=== PATIENT | male | born 1960 | race Caucasian/White ===

== ENCOUNTER → 2017-12-23 14:00 | Outpatient (CLI) | payer BC, SELFPAY ==
--- NOTE | 2017-12-23 14:05 | RAD_ITS ---
STUDY: X-RAY - ABDOMEN/PELVIS REASON FOR EXAM: Male, 57 years old. Left nephrolithiasis TECHNIQUE: Two AP supine views of the abdomen and pelvis. COMPARISON: Prior study of 09/04/2017 FINDINGS: The lung bases were not included in the [id number] of the study. There has been interval removal of a left ureteral stent noted previously. There is an unremarkable bowel gas pattern. There is no demonstrated free abdominal air. There are multiple tiny calculi of the mid and inferior pole of the left kidney, stable in the interval. No definite right renal calculi are identified. Normal soft tissue structures. Normal visualized osseous structures. RAD/Abdomen Single View IMPRESSION: Interval removal of left-sided ureteral stent. Left nephrolithiasis, stable in the interval. Electronically Signed: Antonio Clement MD at 17:02 EST , Service support ,
== END ==
PROVIDERS: Family Provider Internal Medicine; PCP Internal Medicine; Visit Provider Urology
DX: N20.0 Calculus of kidney (principal)
CPT/HCPCS: 74018

== ENCOUNTER → 2018-06-30 13:32 | Outpatient (CLI) | payer BC, SELFPAY | PROVIDERS: Family Provider Internal Medicine; PCP Internal Medicine; Visit Provider Urology | DX: N20.0 Calculus of kidney (principal) | CPT/HCPCS: 74018 ==

== ENCOUNTER → 2019-02-01 | Outpatient (CLI) | payer BC, SELFPAY ==
--- NOTE | 2019-02-01 15:14 | RAD_ITS ---
STUDY: X-RAY - LUMBAR SPINE REASON FOR EXAM: Male, 58 years old. Back pain. TECHNIQUE: 5 view(s) of the lumbar spine were obtained. COMPARISON: 08/29/2014. FINDINGS: Normal lumbar lordosis. There is no substantial scoliosis. There is spondylolysis at the L4-5 level with grade 1 spondylolisthesis. There is minimal retrolisthesis at the L5-S1 level, on a degenerative basis. Normal vertebral bodies. There is mild spondylosis at multiple levels.. There is disc space narrowing at the L4-5 and L5-S1 levels. There is atherosclerotic calcification of the abdominal aorta without a demonstrated aneurysm. RAD/L/S Spine Min 4 Views IMPRESSION: Degenerative disc disease L4-5 and L5-S1. Bilateral spondylolysis L4-5 with grade 1 spondylolisthesis. Grade 1 retrolisthesis L5-S1, on a degenerative basis. Similar findings were present on previous study. Electronically Signed: Ryan Nguyễn MD at 6:28 EDT , Service support ,
== END | disposition home or self-care (01) ==
LOC: HPRAD 15:08
PROVIDERS: Family Provider Internal Medicine; PCP Internal Medicine; Referring Provider Nurse Practitioner; Visit Provider Nurse Practitioner
DX: M54.30 Sciatica, unspecified side (principal)
CPT/HCPCS: 72110

== ENCOUNTER 2021-02-27 09:36 | Emergency (ER) | payer BC, SELFPAY ==
[2021-02-27 09:36] VITALS: BP 131/86; PULSE 87; RESP 16; TEMP 36.2; O2SAT 97; BMI 25.5
--- NOTE | 2021-02-27 09:45 | CT_ITS ---
STUDY: CT ABDOMEN AND PELVIS WITHOUT CONTRAST REASON FOR EXAM: Male, 60 years old. Kidney Stone. Left flank pain. RADIATION DOSAGE (If Supplied By Facility): CTDIvol = ( 6.31 ) mGy, DLP = ( 318.46 ) mGycm TECHNIQUE: Transaxial images were obtained from the dome of the diaphragm to the symphysis pubis without oral contrast, and without intravenous contrast. Sagittal and coronal images were reconstructed. Individualized dose optimization techniques were used for this CT. COMPARISON: Comparison is made with prior study dated 11/14/2014. FINDINGS: The visualized lung bases are unremarkable. The visualized portions of the heart are within normal limits. Normal liver. Small gallstones are seen along the dependent portion of the gallbladder lumen. Normal spleen. Normal pancreas. Normal bilateral adrenal glands. Normal right kidney. There is engorgement of the left kidney. Left perinephric stranding. Mild degree of left hydronephrosis due to a 1.2 cm calculus at the ureteropelvic junction. There are multiple nonobstructive left intrarenal calculi. Normal visualized stomach. Normal small intestine. Normal colon. The appendix is visualized and appears normal. There is diffuse atherosclerotic calcification of the abdominal aorta, without a demonstrated aneurysm. Normal inferior vena cava. Normal retroperitoneum. Normal urinary bladder. Normal abdominal wall. There are diffuse degenerative changes of the visualized lumbar spine. Stable grade 1 anterior listhesis of L4 on L5 with spondylolysis of the pars interarticularis of the L5 vertebrae. CT/Abdomen/Pelvis without Cont IMPRESSION: 1.2 cm calculus at the left ureteropelvic junction causing left hydronephrosis and left perinephric stranding. Multiple left nonobstructive intrarenal calculi. Electronically Signed: Terrance Soto MD at 11:19 EDT , Service support ,
--- NOTE | 2021-02-27 09:47 | ED.VIS.GI ---
HPI HPI - GI History of Present Illness Chief Complaint: Flank Pain Informant: patient Abdominal Pain/Flank Pain Onset: Yesterday Context: Gradual Onset Timing: Continuous Quality: Sharp Location: Left Flank Nausea/Vomiting/Emesis GI Symptom: Positive for Nausea; Negative for Vomiting Diarrhea/Melena/Hematochezia GI Symptom: Negative for Diarrhea, Melena and Hematochezia Associated Symptoms Associated Symptoms: Negative for Dysuria and Frequency Narrative Narrative: Patient presents with left flank pain that began last night. Patient states it is gradually gotten worse. Patient states this feels similar to prior kidney stones. Patient states his last kidney stone was approximately 4 years ago. Patient admits to some nausea but denies any vomiting. Patient denies any dysuria or hematuria. Patient denies any fevers or chills. Patient states the pain is localized to the left flank. PFSH PFS Medical History (Updated 02/27/21 @ 11:[address] Jair Kendrick DO) Cancer of tonsil Kidney stones Home Medications potassium citrate [Urocit-K] 10 meq PO TID 01/14/17 [History Last Taken Unknown] oxycodone-acetaminophen 1 - 2 tab PO Q4H PRN PRN #30 tab 01/15/17 [Rx Last Taken Unknown] oxycodone-acetaminophen 1 tab PO Q6H PRN PRN 5 Days #20 tablet 02/27/21 [Rx Last Taken Unknown] Allergy/AdvReac Type Severity Reaction Status Date / Time No Known Allergies Allergy Verified 01/14/17 13:42 Surgical History History of tonsillectomy Social History Smoking Status: Current every day smoker ROS ROS ED Constitutional Constitutional ED: Denies chills or fever(s) ENT ENT ED: Denies rhinorrhea or sore throat Cardiovascular Cardiovascular: Denies chest pain or palpitations Respiratory/Chest Respiratory/Chest: Denies cough or dyspnea Gastrointestinal Gastrointestinal: Reports nausea; Denies vomiting Genitourinary Genitourinary ED: Denies dysuria or hematuria Musculoskeletal Musculoskeletal: Reports back pain; Denies neck pain Integumentary Denies abscess or rash Neurologic Neurologic: Denies headache(s) or weakness Allergic/Immunologic Allergic/Immunologic ED: Denies mouth swelling or urticaria EXAM Physical Exam Const Vital Signs: 02/27/21 09:36 02/27/21 12:12 Temperature 97.2 F L Temperature Source Temporal Pulse Rate 87 63 Respiratory Rate 16 14 Blood Pressure 131/86 H Blood Pressure Mean 101 Pulse Ox 97 99 Oxygen Delivery Method Room Air Positive well nourished and well developed General Appearance ED: well developed Neck supple and no JVD Resp normal respiratory effort and clear to auscultation bilaterally Cardio regular rate and regular rhythm GI non-distended Auscultation: normoactive bowel sounds Palpation: soft and tender LUQ; Negative for rebound tenderness present Back/Spine General Back: CVA tenderness left Extremity full ROM General Extremety ED: Negative for edema or tenderness General Extremity: Negative for edema Neuro CN's II-XII intact bilaterally and no sensory deficits noted Sensorium / Orientation: alert, oriented to person, oriented to place and oriented to time Motor Exam: strength 5/5 throughout Psych mental status grossly normal MDM MDM MDM Narrative Medical decision making narrative: CBC shows a mild leukocytosis of 13.4. Basic metabolic profile was within normal limits. Urinalysis does not show any evidence of urinary tract infection. CT scan of the abdomen pelvis was obtained. There is a 1.2 cm calculus at the left UPJ with hydronephrosis and perinephric stranding. This was interpreted by the radiologist and reviewed by myself. Patient was given IV fluids and Toradol. Patient was given Zofran. Case was discussed with Dr. Schneider. He will follow up with the patient as an outpatient. Patient was given a prescription for Percocet. Patient was instructed to return if worse in any way. Patient understood and was agreeable with the plan. All questions were answered. Lab Data Attestation: I reviewed the patient's lab results. Labs: Laboratory Results - last 24 hr 02/27/21 02/27/21 02/27/21 09:50 09:50 10:24 WBC 13.4 H RBC 5.53 Hgb 16.8 H Hct 48.9 MCV 88.4 MCH 30.4 MCHC 34.4 RDW Std Deviation 39.7 RDW Coeff of Jose Enrique 12.1 Plt Count 260 MPV 9.0 Immature Gran % (Auto) 0.500 Neut % (Auto) 84.6 H Lymph % (Auto) 9.3 L Armstrong % (Auto) 4.6 Eos % (Auto) 0.7 Baso % (Auto) 0.3 Absolute Neuts (auto) 11.3 H Absolute Lymphs (auto) 1.24 Nucleated RBC % 0 Sodium 136 Potassium 3.6 Chloride 107 Carbon Dioxide 25.0 Anion Gap 4 L BUN 18 Creatinine 1.29 Estim Creat Clear Calc 58.36 Est GFR (MDRD) Af Amer 73 Est GFR (MDRD) Non-Af 61 BUN/Creatinine Ratio 14.0 Glucose 140 H Calcium 9.4 Urine Color Straw Urine Clarity Clear Urine pH 7.0 Ur Specific [place] 1.010 Urine Protein Negative Urine Glucose (UA) Normal Urine Ketones Negative Urine Occult Blood 25 H Urine Nitrite Negative Urine Bilirubin Negative Urine Urobilinogen Normal Ur Leukocyte Esterase Negative Urine RBC 0-5 SEEN Urine WBC 0 SEEN Ur Squamous Epith Cells 0 SEEN Urine Bacteria RARE Urine Mucus 0 SEEN Radiography Diagnostic Testing: Radiology Impression Abdomen/Pelvis CT 02/27/21 09:45 IMPRESSION: 1.2 cm calculus at the left ureteropelvic junction causing left hydronephrosis and left perinephric stranding. Multiple left nonobstructive intrarenal calculi. Electronically Signed: Terrance Soto MD at 11:19 EDT , Service support , Discharge Plan Triage Chief Complaint: Flank Pain ED Provider: Jair Kendrick Dx/Rx/DC Orders Clinical Impression: Calculus of proximal left ureter Instructions: ED Kidney Stone w/ Colic Prescriptions: New oxycodone-acetaminophen [oxycodone-acetaminophen] 1 TABLET tablet 1 tab PO Q6H PRN PRN (Reason: pain) 5 Days Qty: 20 RF: 0 No Action potassium citrate [Urocit-K 10] 10 MEQ tablet extended release 10 meq PO TID RF: 0 oxycodone-acetaminophen 1 TABLET tablet 1 - 2 tab PO Q4H PRN PRN (Reason: Pain) Qty: 30 RF: 0 Primary Care Provider: Jenn Carmona Referrals: Italo Schneider MD [STAFF PHYSICIAN] - As soon as possible Jenn Carmona DO [Primary Care Provider] - Disposition Disposition: Home, self care Discharge Date/Time: 02/27/21 12:13
[2021-02-27 09:55] LABS: Absolute Lymphocyte Count 1.24 X10^3/uL (0.83-4.51); Absolute Neutrophil Count 11.3 X10^3/uL (2.0-7.7); Basophil# 0.04 X10^3/uL; Basophil% 0.3 % (0-1); Eosinophils% 0.7 % (0-5); Hematocrit 48.9 % (40-54); Hemoglobin 16.8 g/dL (13.0-16.5); Lymphocyte # 1.24 X10^3/ul (0.83-4.51); Lymphocyte % 9.3 % (19-41); Mean Corp Hgb Conc 34.4 g/dL (32-36); Mean Corpuscular Hgb 30.4 pg (27.0-32.0); Mean Corpuscular Volume 88.4 fL (80-94); Monocyte# 0.62 X10^3/uL; Monocyte% 4.6 % (0-10); NRBC Flagged by Analyzer 0 % (0-5); Neutrophil # 11.32 X10^3/uL (2.7-7.7); Neutrophil % 84.6 % (47-70); Platelet Count 260 K/mm3 (150-450); RBC Distribution Width CV 12.1 % (11.6-14.6); RBC Distribution Width SD 39.7 fl (35.1-43.9); Red Blood Count 5.53 M/mm3 (4.6-6.2); White Blood Count 13.4 K/mm3 (4.4-11.0)
[2021-02-27 10:07] LABS: Anion Gap 4 (5-15); BUN 18 mg/dL (7-18); Calcium,Total 9.4 mg/dL (8.5-10.1); Chloride 107 mmol/L (98-107); Creatinine, Serum 1.29 mg/dL (0.70-1.30); EST Glomerular Filtration Rate 61 mL/min (>60); Est Glom Filt Rate - Afr Amer 73 mL/min (>60); Estimated Creatinine Clearance 58.36 ml/min; Glucose 140 mg/dL (74-106); Potassium 3.6 mmol/L (3.5-5.1); Sodium Level 136 mmol/L (136-145)
[2021-02-27] MEDS: Ondansetron 4 MG/2 ML Vial IV (10:10)
[2021-02-27] MEDS: Ketorolac 30 MG/ML Syringe IV (10:10)
[2021-02-27] MEDS: 0.9% Normal Saline 1,000 ML 250 ML IV (10:10)
[2021-02-27 10:28] LABS: Mucous, Urine 0 SEEN /hpf (<or=2+); Squamous Epithelial Cells - UA 0 SEEN /hpf (0-5); White Blood Cells 0 SEEN /hpf (0-5)
[2021-02-27 10:42] LABS: Color, Urine Straw (Yellow); Glucose, Dipstick Normal (Normal); Ketone-Dipstick Negative (Negative); Leukocyte Esterase-Dipstick Negative /ul (Negative); Nitrite-Dipstick Negative (Negative); Occult Blood-Urine 25 /ul (Negative); Protein-Dipstick Negative (Negative); Urine Bilirubin Dipstick Negative (Negative); Urine Clarity Clear (Clear); Urine Urobilinogen Normal (Normal)
[2021-02-27 10:54] LABS: Bacteria RARE /hpf (None Seen); Red Blood Cells-Urine 0-5 SEEN /hpf (0-5)
[2021-02-27 12:12] VITALS: PULSE 63; RESP 14; O2SAT 99
== END 2021-02-27 12:13 | disposition home or self-care (01) ==
PROVIDERS: Emergency Provider Emergency Medicine; PCP Internal Medicine
DX: N20.1 Calculus of ureter (principal); F17.200 Nicotine dependence, unspecified, uncomplicated; Z87.442 Personal history of urinary calculi
CPT/HCPCS: 74176; 80048; 81001; 85025; 96361; 96374; 96375; 99283; A4216; J2405

== ENCOUNTER 2021-03-07 11:20 | Day surgery (SDC) | payer BC, SELFPAY ==
[2021-03-07 11:48] VITALS: BP 148/89; PULSE 64; RESP 16; TEMP 37.1; O2SAT 100; BMI 24.7
[2021-03-07] MEDS: Lactated Ringers 1,000 ML 100 ML IV (12:00)
[2021-03-07] MEDS: Lactated Ringers 1,000 ML 75 ML IV (14:30)
--- NOTE | 2021-03-07 14:32 | PCM.HP.STD ---
HPI - General HPI Narrative JANUARY BA, is a 60 M who presents with a large left renal calculus [facility] [place] Medical History (Updated 03/07/21 @ 14:[address] Italo Schneider MD) Cancer Cancer of tonsil Former smoker Full dentures GERD (gastroesophageal reflux disease) Hearing loss, left Hearing loss, right Kidney stones Home Medications potassium citrate [Urocit-K 10] 10 meq PO TID PRN PRN 01/14/17 [History Last Taken Unknown] oxycodone-acetaminophen 1 - 2 tab PO Q4H PRN PRN #30 tab 01/15/17 [Rx Last Taken 03/06/21] esomeprazole magnesium [Nexium 24HR] 20 mg PO DAILY 03/02/21 [History Last Taken 03/07/21] ciprofloxacin HCl [Cipro] 500 mg PO BID #6 tab 03/07/21 [Rx Last Taken Unknown] oxycodone-acetaminophen [Percocet] 1 tab PO Q4H PRN 7 Days #14 tab 03/07/21 [Rx Last Taken Unknown] Allergy/AdvReac Type Severity Reaction Status Date / Time No Known Allergies Allergy Verified 03/02/21 09:25 Surgical History (Updated 03/02/21 @ 09:33 by Kalpana Camargo) History of amputation of finger of left hand History of esophagogastroduodenoscopy (EGD) History of tonsillectomy Social History Smoking Status: Former smoker Vital Signs Vital Signs Vital Signs: 03/07/21 11:48 Temperature 98.7 F Temperature Source Temporal Pulse Rate 64 Respiratory Rate 16 Respiratory Pattern Normal Blood Pressure 148/89 H Blood Pressure Mean 108 Blood Pressure Source Monitor Blood Pressure Position Semi-Fowlers Blood Pressure Location Left Arm Pulse Ox 100 Oxygen Delivery Method Room Air Physical Exam Const alert and oriented x3 General Appearance: cooperative HEENT normocephalic, head/scalp atraumatic, EAC's normal and TM's normal bilaterally Eyes PERRL and EOMs intact bilaterally Pupil: sluggish Neck no lymphadenopathy, supple and no JVD General: trachea midline Lymph Lymphatic: no lymphadenopathy noted, lymphedema and lymphadenopathy Resp normal respiratory effort, normal air movement and clear to auscultation bilaterally Cardio regular rate, regular rhythm and peripheral pulses 2+ throughout GI soft to palpation, non-tender and non-distended Extremity normal capillary refill and no clubbing, cyanosis or edema General Extremity: no tenderness to palpation of joints or extremities Skin no rashes or lesions noted General Skin Exam: turgor normal Lesions: no lesions Rashes: no rashes Neuro CN's II-XII intact bilaterally Speech: speech normal Motor Exam: strength 5/5 throughout; Negative for general weakness Psych thought process normal, cooperative and affect normal Appearance: appropriate Lab / Micro Data Micro: Microbiology 03/06/21 15:53 SARS-CoV-2 Antigen (Rapid) - Final Interface Orders Assessment & Plan Assessment/Plan (1) Left renal stone: PLAN: Plan to proceed with ureteroscopy laser lithotripsy of stone in the left kidney. And stent placement
--- NOTE | 2021-03-07 14:33 | PCM.DC ---
Discharge Instructions Diet Discharge Diet: No restrictions Activity Discharge Activity: May not drive while taking narcotic pain medications. (for 3 days.) May shower in (days): 1 Dressing / Incision Call your doctor if your incision/area has: Continuous Slow Oozing, Increased Pain/ Swelling, Increased Redness and Foul Smelling Discharge Call your doctor if you observe: Fever of 101 or Higher, Numbness or Tingling, Shortness of breath, Dizziness, Calf discomfort and Uncontrolled pain Cleanse incision/area with: Keep Dressing Clean & Dry Follow Up Care Please Follow Up With: Italo Schneider MD When: Call [phone] for an appointment Test Results: Test results from this visit will be discussed in further detail at your follow-up appointment, if applicable. Discharge Plan Admission Primary Reason for Your Visit: laser of stones Attending Provider: Italo Schneider Primary Care Provider: Jenn Carmona Discharge Orders/Prescriptions Prescriptions: New ciprofloxacin HCl [Cipro] 500 mg tablet 500 mg PO BID Qty: 6 RF: 0 oxycodone-acetaminophen [Percocet] 5-325 mg tablet 1 tab PO Q4H PRN (Reason: pain) 7 Days Qty: 14 RF: 0 Continued potassium citrate [Urocit-K 10] 10 MEQ tablet extended release 10 meq PO TID PRN PRN (Reason: kidney stones) RF: 0 oxycodone-acetaminophen 1 TABLET tablet 1 - 2 tab PO Q4H PRN PRN (Reason: Pain) Qty: 30 RF: 0 esomeprazole magnesium [Nexium 24HR] 20 mg Capsule,Delayed Release(Dr/Ec) 20 mg PO DAILY RF: 0 Referrals / Follow Up: Itaol Schneider MD [STAFF PHYSICIAN] - Jenn Carmona DO [Primary Care Provider] - Disposition Discharge Orders: Discharge Patient (Routine); Ordered 03/07/21 Ordered By: Dr. Italo Schneider
[2021-03-07] MEDS: Cefazolin 2 GM in 0.9% Normal Saline 100 ML IV (14:37)
--- NOTE | 2021-03-07 15:40 | OP.PCM_ITS ---
Problems Associated Problem List Diagnoses (1) Left renal stone: Report of Operation Date of Procedure: 03/07/21 Pre-Operative Diagnosis: Large left renal calculi Post-Operative Diagnosis: Same Surgery/Procedure Performed:: Left ureteroscopy laser of stones, left retrograde pyelogram and left stent placement Description of Surgical Findings:: This is a patient who presents to the [facility] for treatment for an obstructing distal ureter calculi. I discussed with the patient how the surgery would be performed and we reviewed the risks and benefits of the surgery. The risk and benefits include the risk of failure to remove the stone completely and that the patient may need multiple procedures. We discussed the risk of an infection, the risk of bleeding. We discussed the very rare risk of serious complicated injury to the ureter. The patient understands that if the stone is not able to be removed safely that we may abort the procedure and place a stent. After full discussion and all questions address with the patient the consent form was signed the side was marked appropriately and the patient was taken back to the operating room for the procedure. The patient was taken back to the operating room. After induction of anesthesia by the anesthesiology team the patient was placed in dorsolithotomy position. The genitals were prepped and draped in usual sterile fashion. I went into the bladder with a 21 Indonesian rigid cystourethroscope through the urethra. Upon entering the bladder I inspected the trigone the left and right ureteral orifice and the bladder itself. I then cannulated the left ureteral orifice and advanced a 0.038 Glidewire up into the kidney. Then over the Glidewire I advanced a 5 Fr Ureteral catheter and performed a retrograde pyelogram with about 10cc of contrast, to delineate the anatomy and identify the stone location. Then a ureteral balloon dilator was advanced over the wire and the distal ureter was balloon dilated with a 12 Fr x 5cm balloon dilator. After 3 minutes of dilating the ureter the balloon was backloaded off the 0.038 glidewire then the safety wire was left in place. I then placed a second 0.038 Guidewire as a working wire and over the working 0.038 guidewire I went in with a Flexible 7.9fr ureteroscope. I was able to go inside with the 7.9Fr flexible utereroscope and I pulled out the working guidewire and then through the 7.9 fr flexible ureteroscope I ascended up the ureter with direct visualization until the stone was located, then I engaged the stone with laser lithotripsy using a 400 lisa laser fiber with energy setting of 10 Hertz and 1.5 J until the stone was lasered into tiny little pieces that should pass on their own. After successful laser lithotripsy of the stone and stone fragements, a retrograde pyelogram was performed with 10cc of contrast and no extravasation of contrast or perforation was identified in the ureter. I then backed out of the ureter left the wire in place and then over the 0.038 guidewire I placed a double coiled pigtail ureteral stent. The ureteral stent was advanced over the 0.038 guidewire under direct fluoroscopic guidance and direct cystoscopic visual g uidance, once the stent was in good position I pulled the wire and the stent coiled in the kidney and bladder in good position. I then drained the patient's bladder and the cystoscope was removed and the patient was taken back to the recovery room in good position. The patient was given discharge instructions to call the office for instructions on when to come to the office to have the stent removed. Type of Anesthesia: General Drains: stent left side with string Admit VTE Documentation VTE Present on Admission: No VTE Mechan Device Prophylaxis: SCD's
[2021-03-07 15:49] VITALS: BP 148/89; BP 165/89; PULSE 64; RESP 12; TEMP 36.5; O2SAT 99
[2021-03-07] MEDS: Ketorolac 15 MG/ML Vial IV (15:59)
[2021-03-07 16:00] VITALS: BP 146/93; BP 148/89; PULSE 63; RESP 18; O2SAT 98
[2021-03-07 16:10] VITALS: BP 148/89; BP 152/96; PULSE 75; RESP 18; TEMP 36.7; O2SAT 99
[2021-03-07 17:25] VITALS: BP 145/78; BP 148/89; PULSE 63; RESP 16; TEMP 36.4; O2SAT 100
== END 2021-03-07 17:44 ==
LOC: SDC 11:25 → AC 11:25
PROVIDERS: PCP Internal Medicine; Referring Provider Urology; Visit Provider Urology
PROC: 0TJ98ZZ Inspection of Ureter, Via Natural or Artificial Opening Endoscopic (ICD-10-PCS; CPT 52352; principal; 2021-03-07 14:50)
DX: N20.0 Calculus of kidney (principal); K21.9 Gastro-esophageal reflux disease without esophagitis; H91.93 Unspecified hearing loss, bilateral; Z87.891 Personal history of nicotine dependence; Z85.89 Personal history of malignant neoplasm of other organs and systems; Z79.899 Other long term (current) drug therapy
CPT/HCPCS: 00918; 52356; 76000; 87426; C9803; J7120; C1769; C2617; J2405

== ENCOUNTER → 2021-03-15 15:23 | Outpatient (CLI) | payer BC, SELFPAY ==
[2021-03-07 11:48] VITALS: BMI 24.7
--- NOTE | 2021-03-15 15:28 | RAD_ITS ---
STUDY: X-RAY - ABDOMEN/PELVIS REASON FOR EXAM: Male, 60 years old. Renal calculus. TECHNIQUE: Two AP supine views of the abdomen and pelvis. COMPARISON: CT of the abdomen and pelvis, 02/27/2021 FINDINGS: Normal visualized lung bases. There is an unremarkable bowel gas pattern. There is no demonstrated free abdominal air. The visualized liver, spleen and kidneys are grossly normal in size and morphology. There is a right ureteral stent. There are calcifications in the lower pole calyces consistent with renal calculi seen on CT. The larger calculus which was seen at the UP junction is not appreciated. Normal soft tissue structures. Normal visualized osseous structures. RAD/Abdomen Single View IMPRESSION: 1. Interval placement of left ureteral stent. 2. Small calcifications in lower pole calyx of the left kidney. Electronically Signed: Rene Caba DO at 19:52 EDT Tel [phone], Service support ,
== END ==
PROVIDERS: PCP Internal Medicine; Referring Provider Nurse Practitioner Adult Health; Visit Provider Nurse Practitioner Adult Health
DX: N20.0 Calculus of kidney (principal)
CPT/HCPCS: 74018

== ENCOUNTER → 2021-05-03 13:42 | Outpatient (CLI) | payer BC, SELFPAY ==
--- NOTE | 2021-05-03 13:44 | RAD_ITS ---
STUDY: X-RAY - ABDOMEN/PELVIS REASON FOR EXAM: Male, 60 years old. Flank pain TECHNIQUE: Two AP supine views of the abdomen and pelvis. COMPARISON: 03/15/2021 FINDINGS: Normal visualized lung bases. Previously noted left-sided JJ stent has been removed. There is an unremarkable bowel gas pattern. There is no demonstrated free abdominal air. The visualized liver, spleen and kidneys are grossly normal in size and morphology. Previous noted calcifications overlying the lower pole of the left kidney no longer identified. They could be obscured by overlying bowel gas and stool Normal soft tissue structures. Normal visualized osseous structures. RAD/Abdomen Single View IMPRESSION: No acute findings Electronically Signed: Jung Diana MD at 14:00 EDT , Service support ,
== END ==
PROVIDERS: PCP Internal Medicine; Referring Provider Nurse Practitioner Adult Health; Visit Provider Nurse Practitioner Adult Health
DX: N20.0 Calculus of kidney (principal)
CPT/HCPCS: 74018

== ENCOUNTER → 2021-08-09 10:13 | Outpatient (CLI) | payer BC, SELFPAY ==
--- NOTE | 2021-08-09 10:16 | RAD_ITS ---
STUDY: X-RAY - ABDOMEN/PELVIS REASON FOR EXAM: Male, 61 years old. CALCULUS OF KIDNEY TECHNIQUE: Single AP view of the abdomen / pelvis. COMPARISON: Comparison is made with prior study of 05/03/2021. FINDINGS: Normal visualized lung bases. There is an unremarkable bowel gas pattern. There is a 2 mm calculus in the lower pole calyx of the left kidney. Adjacent to this, there is a punctate calculus in the lower pole. Normal soft tissue structures. Normal visualized osseous structures. RAD/Abdomen Single View IMPRESSION: There are 2 tiny calculi in the lower pole calyx of the left kidney. Electronically Signed: Terrance Soto MD at 12:37 EDT , Service support ,
== END ==
PROVIDERS: PCP Internal Medicine; Referring Provider Urology; Visit Provider Urology
DX: N20.0 Calculus of kidney (principal)
CPT/HCPCS: 74018

== ENCOUNTER → 2021-08-23 09:38 | Outpatient (CLI) | payer BC, SELFPAY ==
--- NOTE | 2021-08-23 09:41 | RAD_ITS ---
STUDY: X-RAY - ABDOMEN/PELVIS REASON FOR EXAM: Male, 61 years old. Left renal calculus. Abdominal pain. TECHNIQUE: Single AP view of the abdomen / pelvis. COMPARISON: Comparison is made with prior study 08/09/2021. FINDINGS: Normal visualized lung bases. There is a moderate amount of colonic fecal material. 3 calculi are seen in the lower pole calyx of the left kidney. The largest measures 3.6 mm. Normal soft tissue structures. Normal visualized osseous structures. RAD/Abdomen Single View IMPRESSION: 3 small calculi are seen in the lower pole calyx of the left kidney. The larger calcification measures 3.6 mm. Electronically Signed: Terrance Soto MD at 13:23 EDT , Service support ,
== END ==
PROVIDERS: PCP Internal Medicine; Referring Provider Urology; Visit Provider Urology
DX: N20.0 Calculus of kidney (principal)
CPT/HCPCS: 74018

== ENCOUNTER → 2021-08-27 16:46 | Outpatient (CLI) | payer BC, SELFPAY ==
--- NOTE | 2021-08-27 16:58 | CT_ITS ---
STUDY: CT ABDOMEN AND PELVIS WITHOUT CONTRAST REASON FOR EXAM: Male, 61 years old. Kidney stone. History of lithotripsy 2 months ago. RADIATION DOSAGE (If Supplied By Facility): CTDIvol = ( 6.39 ) mGy, DLP = ( 312.94 ) mGycm TECHNIQUE: Transaxial images were obtained from the dome of the diaphragm to the symphysis pubis without oral contrast, and without intravenous contrast. Sagittal and coronal images were reconstructed. Individualized dose optimization techniques were used for this CT. COMPARISON: 12/28/2020. FINDINGS: The visualized lung bases are unremarkable. The visualized portions of the heart are within normal limits. Normal liver. Normal gallbladder and extrahepatic biliary system. Normal spleen. Normal pancreas. There is prominence of both adrenal glands. The left is more masslike in appearance. Normal right kidney. Normal visualized right ureter. There are multiple calcifications in the mid to lower left kidney consistent with renal calculi. The largest, in the lower pole, measures 7 mm in greatest dimension. There is no hydronephrosis. Normal visualized left ureter. Normal visualized stomach. Normal small intestine. Normal colon. The appendix is visualized and appears normal. There is diffuse atherosclerotic calcification of the abdominal aorta, without a demonstrated aneurysm. Normal inferior vena cava. Normal retroperitoneum. Poorly distended urinary bladder without gross abnormality. There is no filling defects. Normal size prostate. There are phleboliths in the pelvis without lymphadenopathy. No free air or free fluid is seen within the peritoneal cavity. Umbilical hernia of omental fat. The abdominal wall is otherwise unremarkable. There are diffuse degenerative changes of the visualized lumbar spine. There is anterolisthesis of L4 on L5 with bilateral pars defects. CT/Abdomen/Pelvis without Cont IMPRESSION: 1. Multiple nonobstructing left renal calculi. The hydronephrosis and large UPJ calculus seen on the previous study are no longer present. 2. Marked enlargement of the left adrenal gland not seen on the previous study. No change in the appearance of adrenal glands is markedly altered. Etiology is uncertain. Question intracranial hemorrhage. 3. Otherwise normal CT of the abdomen and pelvis. There is no other interval change. Electronically Signed: Rene Caba DO at 22:50 EDT Tel [phone], Service support ,
== END ==
PROVIDERS: PCP Internal Medicine; Referring Provider Urology; Visit Provider Urology
DX: N20.0 Calculus of kidney (principal)
CPT/HCPCS: 74176

== ENCOUNTER → 2021-08-31 08:14 | Outpatient (CLI) | payer BC, SELFPAY ==
--- NOTE | 2021-08-31 08:45 | CT_ITS ---
STUDY: CT ABDOMEN WITH CONTRAST REASON FOR EXAM: Male, 61 years old. CALCULUS OF KIDNEY. Prominence of the left adrenal gland. RADIATION DOSAGE (If Supplied By Facility): CTDIvol = ( 21.37 ) mGy, DLP = ( 1726.74 ) mGycm TECHNIQUE: Transaxial images were obtained post I.V. administration of IV 100mL Isovue-370, and oral contrast. Sagittal and coronal images were reconstructed. Individualized dose optimization techniques were used for this CT. COMPARISON: Comparison is made with prior examination dated 08/27/2021. FINDINGS: The visualized lung bases are unremarkable. The visualized portions of the heart are within normal limits. Normal liver. Normal gallbladder and extrahepatic biliary system. Normal spleen. There are 2 adjacent cystic changes in the body of the pancreas. These measure 8 mm and 7 mm respectively. Correlation with ultrasound is recommended. Bilateral adrenal enlargement more prominent on the right side where there is evidence of a hypodense mass lesion measuring 3.3 cm x 2.4 cm. This is not a typical adenoma. Normal right kidney. Stable multiple nonobstructive left intrarenal calculi the largest is in the lower pole and measures 7 mm. Normal visualized stomach. Normal small intestine. Normal colon. The appendix is visualized and appears normal. There is scattered atherosclerotic calcification of the abdominal aorta, without a demonstrated aneurysm. Normal inferior vena cava. Normal retroperitoneum. Normal abdominal wall. There are degenerative changes of the visualized lumbar spine. Anterolisthesis of L4 on L5 with bilateral spondylolysis of the pars interarticularis. CT/Abdomen WITH IV Contrast IMPRESSION: Bilateral adrenal enlargement worse on the left side with a masslike lesion measuring 3.3 cm x 2.4 cm. This is not a typical adenoma. Nonobstructing left intrarenal calculi. 2. Small cysts are seen in the body of the pancreas. Electronically Signed: Terrance Soto MD at 10:45 EDT , Service support ,
== END ==
PROVIDERS: PCP Internal Medicine; Referring Provider Urology; Visit Provider Urology
DX: N20.0 Calculus of kidney (principal)
CPT/HCPCS: 74160; Q9967

== ENCOUNTER 2021-09-06 09:28 | Emergency (ER) | payer BC, SELFPAY ==
[2021-09-06 09:29] VITALS: BP 134/84; PULSE 94; RESP 16; TEMP 35.9; O2SAT 100; BMI 25.0
--- NOTE | 2021-09-06 09:47 | ED.VIS.BACK ---
FLOWER History of Present Illness Chief Complaint: Back Detail of Chief Complaint: Back pain that he has had for over a month Informant: patient Narrative Narrative: Patient presents to the emergency department complaint of severe back pain that has had for over a month. He denies any injury or trauma. Patient was diagnosed with sciatica and has seen Dr. Bhatia the back specialist who ordered an MRI of his back. Patient was told that he would need surgery for his back. Patient states that he did not go to was MRI because he had a CAT scan that showed he had an adrenal gland that was swollen on the left and needs to see a cnc lathe machinist and he did not want to have 2 surgeries at once. Patient also was referred to pain management and he did not go to that appointment either. Patient currently not taking any pain medication. Patient rates his pain a 10 out of 10. He denies any weakness of the extremity other than he cannot dorsiflex his great toe on the right. Patient states this has been this way for about 3 weeks. Patient is able to ambulate. He denies change in bowel or bladder function. He denies saddle anesthesia. Patient has had prior back issues but nothing as severe as this. Patient denies any trauma to his back. He denies fevers. Prior similar symptoms: With Prior Back Pain [facility] Medical History Cancer Cancer of tonsil Former smoker Full dentures GERD (gastroesophageal reflux disease) Hearing loss, left Hearing loss, right Kidney stones Home Medications esomeprazole magnesium [Nexium 24HR] 20 mg PO DAILY 03/02/21 [History Last Taken 03/07/21] celecoxib 200 mg capsule 200 mg PO DAILY cap 07/25/21 [History Last Taken Unknown] naproxen 500 mg tablet 500 mg PO BID PRN tab 07/25/21 [History Last Taken Unknown] cyclobenzaprine 10 mg PO TID PRN #20 tablet 09/06/21 [Rx Last Taken Unknown] hydrocodone-acetaminophen 1 tab PO Q6H PRN PRN 3 Days #20 tablet 09/06/21 [Rx Last Taken Unknown] methylprednisolone [Medrol (Julio)] 4 mg PO DAILY #21 tab 09/06/21 [Rx Last Taken Unknown] Allergy/AdvReac Type Severity Reaction Status Date / Time No Known Allergies Allergy Verified 09/06/21 09:30 Family History (Updated 07/25/21 @ 15:07 by Monica Mojica) Other No family history of disorders Surgical History History of amputation of finger of left hand History of esophagogastroduodenoscopy (EGD) History of tonsillectomy Social History (Updated 07/25/21 @ 15:08 by Monica Mojica) household members: spouse and children housing: house current occupational status: employed current occupation: [employer] pets and animals: Yes pets and animals: dog(s) Smoking Status: Former smoker alcohol intake: current alcohol intake frequency: a few times a week substance use type: does not use what type of physical activity do you participate in: none seatbelt use: always do you feel safe at home: Yes ROS ROS ED Constitutional Constitutional ED: Reports systems reviewed and no addt'l complaints, except as documented; Denies body ache(s), change in weight or chills Eyes Eyes: Denies acute decrease in peripheral vision, change in vision, double vision or loss of vision ENT ENT ED: Reports none; Denies ear pain, lip swelling, loss taste/smell, neck pain, otalgia or sore throat Cardiovascular Cardiovascular: Reports none; Denies abdominal pain, chest pain with activity, leg edema, lightheadedness, palpitations, rapid heart rate or syncope Respiratory/Chest Respiratory/Chest: Reports none; Denies change in mental status, dry cough, dyspnea, hemoptysis, shortness of breath at rest or shortness of breath with exertion Gastrointestinal Gastrointestinal: Reports none; Denies abdominal pain, change in stool character, diarrhea, hematemesis, hematochezia, melena, rectal bleeding or vomiting Genitourinary Genitourinary ED: Reports none; Denies abdominal discomfort, anuria, dysuria, genital pain or polyuria Musculoskeletal Musculoskeletal: Reports none and back pain; Denies arthralgias, difficulty walking, extremity pain, muscle weakness or myalgias Integumentary Reports none; Denies abscess or rash Neurologic Neurologic: Reports none; Denies abnormal gait, confusion, focal weakness, frequent falls, headache(s), loss of vision, numbness, paresthesias, radicular pain, vertigo or weakness Psychiatric Psychiatric: Reports systems reviewed and no addt'l complaints, except as documented and none; Denies behavioral changes, confusion, difficulty concentrating, hallucinations, suicidal ideation, tactile hallucinations or visual hallucinations Endocrine Endocrinology: Denies none, cold intolerance, excessive sweating, fatigue or heat intolerance Hematologic/Lymphatic Hematologic/Lymphatic: Reports none; Denies anemia, easy bleeding or easy bruising Allergic/Immunologic Allergic/Immunologic ED: Denies as per HPI, none, lip swelling, mouth swelling, throat swelling, tongue swelling or hives EXAM Physical Exam Const Vital Signs: 09/06/21 09:29 Temperature 96.6 F L Temperature Source Temporal Pulse Rate 94 Respiratory Rate 16 Blood Pressure 134/84 H Blood Pressure Mean 100 Pulse Ox 100 Oxygen Delivery Method Room Air Positive well nourished and well developed General Appearance ED: well developed and NAD HEENT Reports TM's clear and moist mucous membranes normocephalic and atraumatic; Negative for trauma or tenderness Tympanic Membrane ED: Yes TM's clear Eyes PERRL and EOMs intact bilaterally General Eye ED: Negative for pale conjunctiva or scleral icterus Neck no lymphadenopathy, supple and no JVD General: Negative for tenderness Chest Wall inspection of chest normal and palpation of chest normal Chest: Negative for tenderness Resp normal respiratory effort and clear to auscultation bilaterally Effort and Inspection: Negative for respiratory distress or pain with movement Auscultation: Negative for rhonchi, wheezes or diminished lung sounds Cardio regular rate, regular rhythm, S1 normal heart sound, S2 normal heart sound and no murmurs Peripheral Pulses: pulses 2+ throughout GI normal to inspection, nondistended, normoactive bowel sounds, soft to palpation, non-tender, non-distended and no masses Back/Spine no CVA tenderness and no thoracic nor lumbar tenderness Back/Spine Narrative: I am unable to reproduce his pain with palpation of his back. Patient does have a positive straight leg raise on the right at approximately 60 degrees. Patient unable to dorsiflex his great toe. He has normal sensation to light touch. Deep tendon reflexes are plus 2 out of 4 bilaterally at the patella and Achilles. Extremity normal to inspection General Extremety ED: Negative for edema General Extremity: Negative for edema Neuro oriented x3, CN's II-XII intact bilaterally, no sensory deficits noted and gait normal Sensorium / Orientation: awake, alert, oriented to person, oriented to place and oriented to time Motor Exam: strength 5/5 throughout and strength abnormal Psych mental status grossly normal Skin no rashes or lesions noted and no wounds MDM MDM MDM Narrative Medical decision making narrative: Patient will be medicated with Dilaudid 1 mg IM as well as Zofran 4 mg IM. He will be given prednisone 40 mg p.o. Patient also given Norflex 60 mg IM. Patient will be referred back to his back surgeon and pain management. Will be given a prescription for [place] as well as Flexeril and Medrol Dosepak. Patient advised to return if worsening pain, weakness in extremities, change in bowel or bladder function, or condition should worsen anyway. Discharge Plan Triage Chief Complaint: Back ED Provider: Franklyn Ash Dx/Rx/DC Orders Clinical Impression: Acute lumbar radiculopathy Instructions: ED Sciatica Prescriptions: New cyclobenzaprine [cyclobenzaprine] 10 MG tablet 10 mg PO TID PRN (Reason: Muscle Spasm) Qty: 20 RF: 0 hydrocodone-acetaminophen [hydrocodone-acetaminophen] 1 TABLET tablet 1 tab PO Q6H PRN PRN (Reason: Pain) 3 Days Qty: 20 RF: 0 methylprednisolone [Medrol (Julio)] 4 mg tablets,dose pack 4 mg PO DAILY Qty: 21 RF: 0 No Action celecoxib 200 mg capsule 200 mg PO DAILY RF: 0 naproxen 500 mg tablet 500 mg PO BID PRNRF: 0 esomeprazole magnesium [Nexium 24HR] 20 mg Capsule,Delayed Release(Dr/Ec) 20 mg PO DAILY RF: 0 Primary Care Provider: Jenn Carmona Referrals: Jasbir Razo MD [STAFF PHYSICIAN] - 3-5 Days Jenn Carmona DO [Primary Care Provider] - Charles Bhatia DO [STAFF PHYSICIAN] - 3-5 Days Disposition Disposition: Home, Self Care
[2021-09-06] MEDS: predniSONE 20 MG Tablet 40 MG PO (10:26)
[2021-09-06] MEDS: Ondansetron 4 MG/2 ML Vial IM (10:27)
[2021-09-06] MEDS: HYDROmorphone 1 MG/ML Syringe IM (10:29)
[2021-09-06] MEDS: Orphenadrine 60 MG/2 ML Ampul IM (10:31)
[2021-09-06 10:57] VITALS: RESP 16
== END 2021-09-06 10:58 | disposition home or self-care (01) ==
LOC: ED 10:20
PROVIDERS: Emergency Provider Emergency Medicine; PCP Internal Medicine
DX: M54.16 Radiculopathy, lumbar region (principal); K21.9 Gastro-esophageal reflux disease without esophagitis; Z87.891 Personal history of nicotine dependence; Z79.899 Other long term (current) drug therapy
CPT/HCPCS: 96372; 99282; J2405

== ENCOUNTER → 2021-09-15 07:14 | Outpatient (CLI) | payer BC, SELFPAY ==
--- NOTE | 2021-09-15 07:17 | MRI_ITS ---
ACR Level 3 findings have been noted. An addendum which confirms receipt of the report will follow. STUDY: MRI LUMBAR SPINE WITHOUT CONTRAST REASON FOR EXAM: Male, 61 years old. pain right leg pain weakness left flank pain TECHNIQUE: Standardized fat and water weighted pulse sequences were obtained in the sagittal and axial following administration of . COMPARISON: 31 August 2021, FINDINGS: There is 2 cm left and 7 mm right paraspinous muscle metastases which are ring-enhancing on CT. There are difficult to visualize and characterize bilateral adrenal metastases, as confirmed on recent CT. There is a 1 cm posterior superior corner L1 osseous metastasis without cortical destruction or individual extension. Noncontrast epidural space is normal. T12-L1: Normal endplates. Normal disc height, hydration and morphology. Normal bilateral facet joints. Normal central canal and bilateral lateral recesses. Normal bilateral intervertebral neural foramina. There is bilateral L5 lysis with grade 1 anterolisthesis of approximately 5 mm. The rest of the spine is aligned. Conus terminates at mid L2 with normal cauda equina. L1-2: Normal endplates. Normal disc height, hydration and morphology. Normal bilateral facet joints. Normal central canal and bilateral lateral recesses. Normal bilateral intervertebral neural foramina. L2-3: Normal endplates. Normal disc height, hydration and morphology. Normal bilateral facet joints. Normal central canal and bilateral lateral recesses. Normal bilateral intervertebral neural foramina. L3-4: Normal endplates. Normal disc height, hydration and morphology. Normal bilateral facet joints. Normal central canal and bilateral lateral recesses. Normal bilateral intervertebral neural foramina. L4-5: Endplates are degenerated. Disc height is reduced with generative signal and morphology with disc uncovering. Canal and lateral recesses are patent. Foramina are moderately to severely stenotic bilaterally. L5-S1: Normal endplates. Decreased disc height, altered hydration and degenerative morphology with bulge and central protrusion. Mildly degenerated bilateral facets. Normal central canal and bilateral lateral recesses. Foramina are moderately stenotic bilaterally. Normal visualized sacral ala. MRI/Spine Lumbar (Routine) IMPRESSION: 1. Bilateral adrenal metastases. 2. Bilateral paraspinous muscle metastases. 3. L1 osseous metastases. 4. Patent thecal sac. No cauda equina compression. 5. L4 lysis, grade 1 anterolisthesis with bilateral foraminal stenosis. Electronically Signed: Rachelle Mota MD at 21:22 EST Tel , Service support ,
== END ==
PROVIDERS: PCP Internal Medicine; Visit Provider Orthopaedic Surgery
DX: M43.17 Spondylolisthesis, lumbosacral region (principal)
CPT/HCPCS: 72148

== ENCOUNTER → 2021-10-01 07:48 | Outpatient (CLI) | payer BC, SELFPAY ==
[2021-10-01] VITALS (9 sets, daily range): BP systolic 124–154; BP diastolic 64–113; PULSE 70–87; RESP 12–20; TEMP 37.1; O2SAT 94–100; BMI 23.5
--- NOTE | 2021-10-01 | IMM_PTH ---
PATIENT: JANUARY BA LOC: CT U#:[id number] AGE/SX: 65/M ROOM: RE10/01/[address]: Dr. Jose Elias Diaz MD : 1960 BED: DIS: SPEC #: [id number] RECD: 10/02/21 12:03 STATUS: BRIAN REQ #: [id number] [place]: 10/01/21 00:[address]: Jose Elias Diaz DEPT: IMMUNOHISTOCHEMISTRY RECD BY: Rosibel Samayoa ENTERED: 10/02/21 12:08 SP TYPE: IMMUNO OTHR DR: Dr. Jenn Carmona DO Tissues: Adrenal gland, NOS Procedures: Synapto (add) RCC (add) Thyroglobulin (add) NAPSIN A (add) CD56 (add) CEA (add) CHROMO (add) CK20 (add) CK5-6 (add) CK7 (add) CK8 (add) QUEEN-2 (add) LEANNA (add) HEP PAR (add) KI-67 (add) MAMM (add) P53 (add) TX (add) TTF1 (add) Vimentin (add) 34BE12 (add) Pankeratin (add) GATA3 (add) P40 (add) CDX2 (add) CD44 (add) PSAP (add) ER (initial) NSE (add) S-100 (add) PHYSICIAN & INSTITUTION [facility] [address] SPECIMEN INFORMATION: Tissue Source: Left adrenal biopsy Clinical Info: Staging Specimen Number: [id number] CPT code: 97728, 25268 x29 METHODOLOGY: Deparaffinized sections of prefer/formalin-fixed tissue or PAP/DQ stained slides are incubated with monoclonal/polyclonal antibodies/oligonucleotide probes. Localization is made via biotin free immunoperoxidase method. Appropriate controls are performed and reacted as expected. Results on target cell population are indicated in the following table: RESULTS: ANTIBODY / CLONE RESULT ER (6F11) negative TX (1E2) negative Mammaglobin (31A5) negative GATA3 (L50-823) negative AE1-3 (AE1/AE3/PCK26) positive CK7 (OV-TL12/30) positive CK8 (25jtfuC88) positive CK20 (KS20.8) negative QUEEN-2 (SP21) positive CDX2 (QXT9918J) negative Vimentin (V9) negative 34BE12 (34BE12) positive S-100 (4C4.9) negative CD56 (123C3.D5) negative Chromo (LK2H10) negative Synapto (polyclonal) negative TTF-1 (8G7G3/1) negative Napsin A (Rabbit Polyclonal) negative HepPar (OCh1E5) negative RCC (PN-15) negative PSAP (PASE/4LJ) negative Thyro (2H11+6E1) negative anti-CD44 (SP37) positive CK5-6 (D5 & 1684) positive, focal P40 (BC28) negative P53 (DO-7) negative Ki-67 (30-9) positive, 15% LEANNA (E29) positive CEA (11-7/TF-3HB-1) negative NSE Neuron Specific Enolase negative These tests were developed and their performance characteristics determined by [facility]. They may not have been cleared or approved by the U.S. Food and Drug Administration. The FDA has determined that such clearance or approval is not necessary. The above immunohistochemical/dualISH markers are ordered and reviewed by the Pathologist. INTERPRETATION: Left adrenal biopsy: Metastatic poorly differentiated adenocarcinoma. See comment. AM:zenaida 10/03/2021 Comment: An upper GI primary including pancreatobiliary system cannot be ruled out.
--- NOTE | 2021-10-01 | ASPIGT_PTH ---
PATIENT: JANUARY BA LOC: CT U#:[id number] AGE/SX: 65/M ROOM: RE10/01/[address]: Dr. Jose Elias Diaz MD : 1960 BED: DIS: SPEC #: [id number] RECD: 10/01/21 12:49 STATUS: BRIAN REGilbert #: [id number] [place]: 10/01/21 00:[address]: Jose Elias Diaz DEPT: SURGICAL PATHOLOGY RECD BY: Tal Nolasco ENTERED: 10/01/21 12:50 SP TYPE: ASP RAD OTHR DR: Dr. Jenn Carmona DO Tissues: Adrenal gland, NOS Procedures: FNA Specimen Adequacy Special Stain Group II Surgery Specimen Level IV Imprint (control) HEADER OPERATION: CT-guided left adrenal biopsy PRE-OP DIAGNOSIS: Staging TISSUE SUBMITTED: Left adrenal biopsy 18-gauge core x3 MICROSCOPIC DIAGNOSIS Left adrenal mass, CT-guided core biopsy: Metastatic non-small cell carcinoma, poorly differentiated. See comment. AM:zenaida 10/04/2021 COMMENT The specimen is evaluated at the time of biopsy by Dr. Hawkins. Immediate Evaluation = Atypical cells noted. Adequate for evaluation. Immunohistochemistry ([id number]) supports the above diagnosis. A primary arising in the upper gastrointestinal tract including the pancreatobiliary system cannot be excluded. Clinical correlation is suggested. Case has been reviewed in consultation with Dr. Hawkins who concurs with the above diagnosis. IDC:[email or web address] MICROSCOPIC DESCRIPTION Slides are reviewed. GROSS DESCRIPTION Received in fixative is one container labeled with the patient's name and designated left adrenal biopsy. The specimen consists of multiple elongated fragments of alas soft tissue that in aggregate measure 2 x 0.1 x 0.1 cm. The specimen is totally submitted in one cassette. Two touch imprints are prepared at the time of core biopsy. / HARLAN:zenaida 10/01/21 TC:0 CPT: 77526, 11011
--- NOTE | 2021-10-01 07:58 | CT_ITS ---
PROCEDURE: CT GUIDED biopsy of the left adrenal gland. DATE: 10/01/2021. INDICATION: Male, 61 years old. Left adrenal mass. PHYSICIAN: Terrance Soto M.D. RADIATION DOSAGE (If Supplied By Facility): CTDIvol = ( 9.49 ) mGy, DLP = ( 264.81 ) mGycm. Individualized dose authorization techniques were utilized. PROCEDURE: The risks, benefits, and alternatives to the procedure were explained to the patient. The specific risk of hemorrhage and infection requiring further treatment or intervention was detailed and accepted. Follow-up instructions were discussed with the patient as well. Written informed consent was obtained. The patient was brought into the CT suite and placed in the prone position. . An appropriate entry site was identified. The overlying skin was prepped and draped in the usual sterile fashion. 1% lidocaine was administered subcutaneously for local anesthesia. Conscious sedation was performed. The patient received 2 mg of VERSED and 50 mcg of FENTANYL intravenously. Conscious sedation was started at 9:18 AM and terminated at 9:40 AM. The patient was independently monitored by the department nurse. Under CT guidance, a total of 3 passes were performed utilizing an 18-gauge core biopsy needle The specimens were then placed in the appropriate fluid and transported to the laboratory for analysis. Hemostasis was obtained. The patient tolerated the procedure well without immediate complications. CT/Biopsy/Inj or Needle Placement IMPRESSION: Successful CT guided left adrenal gland biopsy, as described above. The conscious sedation protocol was followed. Electronically Signed: Terrance Soto MD at 11:02 EST , Service support ,
--- NOTE | 2021-10-01 07:58 | CT_ITS ---
STUDY: CT CHEST WITH CONTRAST REASON FOR EXAM: Male, 61 years old. STAGING RADIATION DOSAGE (If Supplied By Facility): CTDIvol = ( 10.51 ) mGy, DLP = ( 241.01 ) mGycm TECHNIQUE: Transaxial imaging was performed following intravenous administration of IV 100mL Isovue-370. Multiplanar coronal and sagittal images were reformatted. Individualized dose optimization techniques were used for this CT. COMPARISON: None. FINDINGS: 5.7 mm cyst in the right lobe of the thyroid. There is a 4.3 cm x 4.1 cm cavitated solid mass in the medial aspect of the right upper lobe. Incidental note is made of an azygos lobe. There is no demonstrated pleural abnormality. Normal heart and pericardium. Normal mediastinum. Normal hilar regions. Normal enhanced pulmonary arteries. Normal aorta arch and descending thoracic aorta. There are degenerative changes of the thoracic spine. Adrenal enlargement bilaterally. There is evidence of a 2.8 cm x 3.9 cm cystic mass in the left adrenal gland. This also evidence of a 1.2 cm cyst in the tail the pancreas. A similar appearing cystic structure measuring 1.5 cm in the body of the pancreas. CT/Chest WITH Contrast IMPRESSION: 4.3 cm x 4.1 cm cavitated mass in the right upper lobe. Bilateral adrenal enlargement more prominent on the left side. Electronically Signed: Terrance Soto MD at 15:00 EST , Service support ,
[2021-10-01 08:01] LABS: Absolute Lymphocyte Count 0.85 X10^3/uL (0.83-4.51); Absolute Neutrophil Count 7.4 X10^3/uL (2.0-7.7); Basophil# 0.02 X10^3/uL; Basophil% 0.2 % (0-1); Eosinophil# 0.02 X10^3/uL; Eosinophils% 0.2 % (0-5); Hematocrit 47.8 % (40-54); Hemoglobin 16.6 g/dL (13.0-16.5); Lymphocyte # 0.85 X10^3/ul (0.83-4.51); Lymphocyte % 9.5 % (19-41); Mean Corp Hgb Conc 34.7 g/dL (32-36); Mean Corpuscular Hgb 30.2 pg (27.0-32.0); Mean Corpuscular Volume 87.1 fL (80-94); Mean Platelet Vol. 8.8 fl (6.2-12.0); Monocyte# 0.52 X10^3/uL; Monocyte% 5.8 % (0-10); NRBC Flagged by Analyzer 0 % (0-5); Neutrophil # 7.42 X10^3/uL (2.7-7.7); Neutrophil % 83.1 % (47-70); Platelet Count 306 K/mm3 (150-450); RBC Distribution Width CV 11.9 % (11.6-14.6); RBC Distribution Width SD 38.5 fl (35.1-43.9); Red Blood Count 5.49 M/mm3 (4.6-6.2); White Blood Count 8.9 K/mm3 (4.4-11.0)
[2021-10-01 08:14] LABS: International Normalized Ratio 1.1; Partial Thromboplast Time 31.4 Seconds (24.1-36.2); Prothrombin Time (Protime)PT. 13.3 SECONDS (11.7-14.9)
[2021-10-01] MEDS: fentaNYL 100 MCG/2 ML Ampul IV ×2 (09:18→09:36)
[2021-10-01] MEDS: Midazolam 2 MG/2 ML Syringe IV ×2 (09:18→09:36)
[2021-10-01] MEDS: Lidocaine 2% (20 ml mdv) 20 ML Vial INFILT (09:25)
== END | disposition home or self-care (01) ==
PROVIDERS: PCP Internal Medicine; Referring Provider Internal Medicine Medical Oncology; Visit Provider Internal Medicine Medical Oncology
DX: Z01.818 Encounter for other preprocedural examination (principal); C79.51 Secondary malignant neoplasm of bone; C80.0 Disseminated malignant neoplasm, unspecified; E27.8 Other specified disorders of adrenal gland; C74.92 Malignant neoplasm of unspecified part of left adrenal gland
CPT/HCPCS: 49180; 36415; 71260; 77012; 85025; 85610; 85730; 88172; 88305; 88313; 88341; 88342; 99156; J7040; Q9967; A4216